=== PATIENT | female | born 1960 | race Caucasian/White ===

== ENCOUNTER 2016-05-30 14:57 | Inpatient (IN) | payer MEDICARE, MEDICAID ==
[~2016-05-30] VITALS: Ht 167.6 cm; Wt 91.5 kg
--- NOTE | ~2016-05-30 | ER ---
PATIENT'S NAME: ARTUR [facility] AGE: 56 Y [address] ROOM: [place] [address] LOCATION: GPCU ADMIT DATE: 05/30/2016 ER/Outpatient Report DISCHARGE DATE: FAMILY PHYSICIAN: Libra Sam MD ATTENDING PHYSICIAN: DONOVAN SARABIA CHIEF COMPLAINT: Difficulty breathing. HISTORY OF PRESENT ILLNESS: The patient states that she has had trouble breathing for the last several weeks, however, it is continuing to worsen. She has seen multiple times for the same issue, in fact has a thermal intelligence analyst, Dr. Leslie. She is on multiple breathing treatments and steroids and feels like she is getting worse. She does wear oxygen at night. She denies any issues with chest pain. No headaches or vision changes associated with this. She just states that it is getting harder and harder to breathe. She also noted that there was some blood in her phlegm that she is coughing up, which is new and that was also concerning. She denies any other acute issues. She did finish some azithromycin within the last few days. She denies any fevers or chills associated with this and has no urinary symptoms. PAST MEDICAL HISTORY: Documented on the record and reviewed by me. SOCIAL HISTORY: Documented on the record and reviewed by me. MEDICATIONS: Documented on the record and reviewed by me. ALLERGIES: DOCUMENTED ON THE RECORD AND REVIEWED BY ME. REVIEW OF SYSTEMS: All systems were reviewed and negative except as noted in the HPI. PHYSICAL EXAMINATION: VITAL SIGNS: Blood pressure 189/98, pulse is 101, respiratory rate is 22 to 24, temperature is 98.8, and SpO2 is 92% on room air. GENERAL: Age-appropriate female, appearing tired, coughing with mild respiratory distress with no overt signs of pain. NEURO: The patient is awake and alert. GCS is 15. No focal deficits or asymmetry on exam. HEENT: Normocephalic and atraumatic. The eyes are tired in appearance, but PATIENT'S NAME: REVERESYLVIA [facility] AGE: 56 Y [address] ROOM: [place] [address] LOCATION: GPCU ADMIT DATE: 05/30/2016 ER/Outpatient Report DISCHARGE DATE: FAMILY PHYSICIAN: Libra Sam MD ATTENDING PHYSICIAN: DONOVAN SARABIA. Sclerae are mildly injected. The oropharynx is grossly clear. NECK: Supple. The trachea is midline. CHEST: Heart is tachycardic with no obvious murmurs. The lungs are tachypneic with markedly diminished air entry bilaterally. Occasional wheeze or crackle noted diffusely. BACK: Otherwise nontender to palpation throughout. No CVA tenderness. ABDOMEN: Soft and nontender, but obese. EXTREMITIES: Warm and well perfused with trace peripheral edema. SKIN: Warm and dry without diaphoresis, rashes, or erythema. LABORATORY DATA AND X-RAYS: Influenza A and B are negative. Procalcitonin is below threshold. WBC is 12.3, hemoglobin 14.4, and platelets of 212. INR is 1.0. Sodium 141, potassium 3.5, chloride is 108, CO2 is 26, BUN is 11, and creatinine is 1.0. GFR is 57. LFTs are notable for an AST of 43, but otherwise normal. CPK is 61 and CK-MB is 0.8. Troponin is below threshold. CRP is below threshold. Free T4 is 1.0, TSH is 3.38, ProBNP is 134. Blood gas; pH of 7.41, pCO2 is 48, pO2 is 62, bicarb is 30.4, CO2 content 32, base excess is 4.8, saturation 92% on room air. Lactate is 0.8. D-dimer 0.23. EKG reveals a sinus rhythm, ventricular rate of 80 with normal intervals and axis. No change compared to prior EKG dated 04/14/2015. Chest x-ray, normal per my read with no infiltrates. RSV is pending. IMPRESSION: 1. Chronic obstructive pulmonary disease exacerbation without hypercarbia. 2. Mild elevation of AST secondary to known hepatitis. EMERGENCY DEPARTMENT COURSE: The patient was evaluated as above. She was given DuoNeb and Xopenex. She had mild improvement in her pulmonary exam. She did not become hypoxic. She did have a little bit of shortness of breath when she got up to use the restroom, however, her O2 saturations never did drop. She continues to breathe approximately 20 to 25 times a minute. The breathing treatments did not have any improvement between the first and second Xopenex. She was given 125 mg of Solu-Medrol IV. I did speak with Dr. Leslie, thermal intelligence analyst, who has recommended admission and IV steroids. I spoke with Dr. Sarabia, hospitalist, to admit the patient. The patient will be admitted to the PCU unit for observation of the presumed COPD exacerbation with increased work of breathing. All questions were answered to the best of my ability and the patient was admitted without further issue. EDMUDNO BIANCHI MD PATIENT'S NAME: SYLVIA SIDDIQUI [facility] AGE: 56 Y [address] ROOM: [place] [address] [facility] ADMIT DATE: 05/30/2016 ER/Outpatient Report DISCHARGE DATE: FAMILY PHYSICIAN: Libra Sam MD ATTENDING PHYSICIAN: DONOVAN SARABIA/tanisha /[id number] d: 05/30/162111 t: 05/31/16 0623, OUTPATIENT REPORT
--- NOTE | ~2016-05-30 | DS ---
PATIENT'S NAME: ARTUR [facility] AGE: 56 Y [address] ROOM: [place] [address] LOCATION: GPCU ADMIT DATE: 06/02/2016 Discharge Summary DISCHARGE DATE: 06/03/2016 FAMILY PHYSICIAN: Libra Sam MD ATTENDING PHYSICIAN: Daysi Sarabia PRIMARY DIAGNOSES: 1. Acute on chronic hypoxic and hypercapnic respiratory failure with chronic obstructive pulmonary disease exacerbation. 2. Essential hypertension. 3. Generalized anxiety. 4. Rheumatoid arthritis. 5. Coronary artery disease. 6. Hypothyroidism. 7. Fibromyalgia. 8. Nocturnal hypoxia with chronic nocturnal oxygen dependence. 9. Tobacco dependence. OPERATIONS/PROCEDURES: None. HISTORY OF PRESENTING ILLNESS/REASON FOR ADMISSION: Please refer to the H and P dictated on 05/30/2016. HOSPITAL COURSE: The patient was admitted to hospital as noted above with presumptive diagnosis of acute or chronic hypoxic and hypercapnic respiratory failure with chronic obstructive pulmonary disease exacerbation. She was treated with broad-spectrum antibiotic therapy. She did receive a steroid burst and taper. She was initially treated with doxycycline p.o. She remained afebrile over the course of her hospital stay. Cultures were negative. Her clinical condition gradually improved and oxygen requirements also improved. She was weaned back to room air by hospital day #3. She was able to ambulate in the hallways independently, was tolerating regular diet. That point, it was thought she would be stable enough for discharge to home on an adjusted steroid regimen and plans for close clinical follow up with Pulmonology and outpatient followup with the primary care provider. DISCHARGE INSTRUCTIONS: DIET: Regular as tolerated. ACTIVITY: As tolerated. MEDICATIONS: PATIENT'S NAME: [place] [facility] AGE: 56 Y [address] ROOM: [place] [address] LOCATION: GPCU ADMIT DATE: 06/02/2016 Discharge Summary DISCHARGE DATE: 06/03/2016 FAMILY PHYSICIAN: Libra Sam MD ATTENDING PHYSICIAN: Daysi Sarabia 1. Aspirin 81 mg p.o. daily. 2. Tussionex 5 mL p.o. b.i.d. p.r.n. cough. 3. Clonazepam 1 mg p.o. q.h.s. 4. Doxycycline 100 mg p.o. b.i.d. through 06/06/2016. 5. Cymbalta 30 mg p.o. daily. 6. Plaquenil 200 mg p.o. q.h.s. 7. Levothyroxine 100 mcg p.o. daily. 8. Metoprolol 25 mg p.o. daily. 9. Omeprazole 20 mg p.o. daily. 10. Prednisone tapering course 40 mg p.o. daily through 06/05/2016, then 20 mg p.o. daily for three days, then 10 mg p.o. daily for three days, then stop. 11. Daliresp 500 mcg p.o. daily. 12. Crestor 5 mg p.o. daily. 13. Topamax 50 mg p.o. b.i.d. 14. Vitamin D3 5000 units p.o. daily. 15. Ellipta 62.5 mcg inhaled daily. 16. Virtussin p.r.n. 17. Ibuprofen 800 mg p.o. t.i.d. p.r.n. 18. Albuterol HFA 2 puffs p.o. q.4-6 hours p.r.n. 19. Advair HFA 230/21 one puff b.i.d. 20. Oxygen 1 L q.h.s. FOLLOWUP: She will follow up Dr. Libra Sam in 1 week. She will follow up Dr. Leslie in the Pulmonology Clinic in 2 weeks. CONDITION ON DISCHARGE: Fair. Total time spent on discharge process 45 minutes. MD EZEKIEL ANDERSON/tanisha /[id number] d: 06/04/16 1117 t: 06/08/16 1550, DISCHARGE SUMMARY
--- NOTE | ~2016-05-30 | CON ---
PATIENT'S NAME: SYLVIA SIDDIQUI [facility] AGE: 56 Y [address] ROOM: [place] [address] LOCATION: GPCU ADMIT DATE: 06/02/2016 Consultation DISCHARGE DATE: 06/03/2016 FAMILY PHYSICIAN: Libra Sam MD ATTENDING PHYSICIAN: Daysi Sarabia DATE OF CONSULTATION: 06/02/2016 REFERRING PHYSICIAN: Ruddy Leslie MD INDICATION/REASON FOR CONSULTATION: COPD exacerbation. HISTORY OF PRESENT ILLNESS: This is a 56-year-old female, known to Dr. Leslie from the clinic who called in to us on Thursday late afternoon with complaints of a cough, wheezing, and shortness of breath. She was sent to the ER for evaluation and was admitted on Thursday evening for COPD exacerbation. The patient reports that she has had a worsening cough, increased shortness of breath, and wheezing for the last 2 weeks. She was initially treated on an outpatient basis with azithromycin and prednisone. However, she continued to feel worse especially over the last few days. She was admitted and started on doxycycline as well as IV Solu-Medrol with DuoNeb and Advair. Today she reports that she had a bad night with coughing, but overall does not feel that she has had much improvement in her symptoms yet. She is using the cough syrup at night which seems to help slow down the coughing. She currently denies any sinus drainage or congestion. She denies any fevers or chills. She does have a sore throat but attributes this to all of the frequent coughing. She denies any hemoptysis or edema. She typically uses 2 L of her nasal cannula at night. PAST MEDICAL HISTORY: Includes: 1. COPD. 2. Chronic respiratory failure. 3. Tobacco use. 4. CAD. 5. Hypertension. 6. Hyperlipidemia. ALLERGIES: SEE MAR. MEDICATIONS: See MAR. FAMILY HISTORY: PATIENT'S NAME: SYLVIA SIDDIQUI [facility] AGE: 56 Y [address] ROOM: [place] [address] LOCATION: GPCU ADMIT DATE: 06/02/2016 Consultation DISCHARGE DATE: 06/03/2016 FAMILY PHYSICIAN: Libra Sam MD ATTENDING PHYSICIAN: Daysi Sarabia The patient reports heart disease in both of her parents, but is negative for lung disease. SOCIAL HISTORY: She lives at home and is a long time one pack per day smoker. She denies any alcohol use. REVIEW OF SYSTEMS: A 12-point review of systems was negative except for what was noted in the HPI. PHYSICAL EXAMINATION: GENERAL: This is a 56-year-old female who is well developed, well-nourished overweight and appears in no acute distress at the time of exam. She is alert and oriented x3. HEENT: Head; normocephalic and atraumatic. Eyes; clear. NECK: Supple. No adenopathy. No carotid bruits or JVD. LUNGS: Decreased breath sounds throughout but overall clear. HEART: Regular rate and rhythm without murmur, gallop, or rub. ABDOMEN: Soft, nontender, and nondistended. Bowel sounds positive x4. EXTREMITIES: No cyanosis, clubbing, or edema. LABORATORY DATA AND IMAGING STUDIES: Diagnostic data shows the ABG on admission was pH of 7.41, pCO2 of 48, pO2 of 62, bicarbonate of 30.4, and base excess of 4.8. Sodium 141, potassium 3.9, BUN 11, and creatinine 0.9. ProBNP 134. Chest x-ray was negative. WBC 12.3, hemoglobin 14.4, hematocrit 43.7, and platelets of 212,000. Procalcitonin was less than 0.05. RSV and flu swabs were negative. ASSESSMENT: 1. Chronic obstructive pulmonary disease exacerbation. Slowly improving. 2. Acute respiratory failure. Almost resolved. 3. Anxiety, stable. 4. Tobacco abuse. Patient willing to quit. 5. Nocturnal hypoxia. PLAN: We will discontinue IV Solu-Medrol and start p.o. prednisone taper, otherwise continue with doxycycline as well as bronchodilator inhaled corticosteroids. I strongly advised the patient to not start smoking again. Further recommendations will be made pending the course of her stay. Thank you for the consult and the opportunity to participate in patient's care. PATIENT'S NAME: SYLVIA SIDDIQUI [facility] AGE: 56 Y [address] ROOM: [place] [address] LOCATION: GPCU ADMIT DATE: 06/02/2016 Consultation DISCHARGE DATE: 06/03/2016 FAMILY PHYSICIAN: Lirba Sam MD ATTENDING PHYSICIAN: Daysi Sarabia CLAIR VIEIRA APRN FOR RUDDY LESLIE MD [facility]/modl /[id number] d: 06/09/162110 t: 06/16/1602, CONSULTATION REPORT
--- NOTE | ~2016-05-30 | HP ---
PATIENT'S NAME: ARTUR [facility] AGE: 56 Y [address] ROOM: [place] [address] LOCATION: GPCU ADMIT DATE: 05/30/2016 History & Physical DISCHARGE DATE: FAMILY PHYSICIAN: Libra Sam MD ATTENDING PHYSICIAN: DONOVAN ELLISON DATE OF SERVICE: CHIEF COMPLAINT: Shortness of breath, COPD exacerbation. HISTORY OF PRESENT ILLNESS: This is a 56-year-old female, active smoker, long history of COPD, coronary artery disease, who presents to the emergency room with a 2-week history of progressively worsening shortness of breath, worsening cough, and productive sputum. The patient had been seeing her primary care physician over the last 2 weeks for worsening symptoms, and she had been started and tried on prednisone taper as well as just finished a course of Z-Christiano. However, it did not improve. The patient today complains of shortness of breath at rest and persistent cough and some chest tightness. The patient is an active smoker and still continues to smoke about a pack a day. The patient otherwise denies any chest pain, dizziness, lightheadedness, abdominal pain, nausea, vomiting, diarrhea, or constipation. Does report subjective fevers and chills. The patient lives at home with grandchildren, and 2 of her grand kids suffered influenza in the past couple of weeks. She had been checked for the flu twice in the last 2 weeks, both times were negative. PAST MEDICAL HISTORY: 1. COPD. 2. Chronic respiratory failure, on 2 L of oxygen nightly. 3. Tobacco abuse. 4. Coronary artery disease. 5. Hypertension. 6. Hyperlipidemia. FAMILY HISTORY: The patient has a history of heart disease in both her parents. SOCIAL HISTORY: The patient lives at home with grand kids. A pack a day smoker, has been doing so far long time. Denies any alcohol or illicit drug use. REVIEW OF SYSTEMS: A 10-point review of systems was conducted and were all negative except as mentioned in the HPI. PATIENT'S NAME: ARTUR [facility] AGE: 56 Y [address] ROOM: [place] [address] LOCATION: GPCU ADMIT DATE: 05/30/2016 History & Physical DISCHARGE DATE: FAMILY PHYSICIAN: Libra Sam MD ATTENDING PHYSICIAN: DONOVAN ELLISON PHYSICAL EXAMINATION: VITAL SIGNS: Blood pressure 157/88, pulse 103, respiratory rate 23, saturating 90% on room air. GENERAL: The patient is awake, alert, and oriented x3, looks older than stated age. HEENT: Moist mucous membranes. No scleral icterus or conjunctival pallor noted. SKIN: No rash or lesions noted. CHEST: Diffusely diminished breath sounds with mild wheezing noted throughout. HEART: S1, S2. Regular rate and rhythm. Tachycardiac rate in the 100s. ABDOMEN: Soft, nontender, nondistended. Positive bowel sounds. EXTREMITIES: Without edema or swelling. NEURO: Grossly nonfocal. MUSCULOSKELETAL: No joint pain or muscle pain noted. LABORATORY DATA: Admission labs reviewed. Chest x-ray without significant infiltrates. ASSESSMENT AND PLAN: 1. Acute on chronic hypoxic respiratory failure. This is related to chronic obstructive pulmonary disease exacerbation from a possible bacterial bronchitis. The patient has had symptoms over 2 weeks, which elicits treatment for possible bacterial infection. The patient has allergies to fluoroquinolones and had been tried on azithromycin as an outpatient, which has failed. I will put her on doxycycline for a 7-day course orally and monitor clinically. 2. Chronic obstructive pulmonary disease exacerbation secondary to bronchitis, likely bacterial. Manage as above. 3. Hypertension. We will continue the patient's home medications. 4. Coronary artery disease. The patient is having angina symptoms currently. We will continue her aspirin and cardiac meds. 5. Hyperlipidemia. We will continue her statin therapy. 6. Tobacco dependency. I had a lengthy discussion with her about the need to quit smoking. The patient has had multiple attempts to help her quit smoking, and she recognizes the need to do this soon. 7. Deep venous prophylaxis. We will use subcutaneous Lovenox. MD CYNTHIA HALLMAN/tanisha PATIENT'S NAME: SYLVIA SIDDIQUI [facility] AGE: 56 Y [address] ROOM: [place] [address] [facility] ADMIT DATE: 05/30/2016 History & Physical DISCHARGE DATE: FAMILY PHYSICIAN: Libra Sam MD ATTENDING PHYSICIAN: DONOVAN ELLISON /[id number] D: [id number] T: [id number] HISTORY & PHYSICAL
[~2016-05-30 14:57] MED LIST: ADVAIR HFA 230/1 KIT INH; AMOXICILLIN500 M1 PO; ASPIR 8181 MG PO; AZITHROMYCIN250 MG PO; CRESTOR5 MG PO; CYMBALTA60 MG PO; DELTASONE10 MG; DELTASONE10 MG PO; DELTASONE20 MG PO; DELTASONE50 MG PO; IBUPROFEN800 MG PO; INCRUSE ELLI62.5 MCG INH; KLONOPIN1 MG PO; LEVOTHROID (S100 MCG PO; MUCUS ER600 M1 PO; NICODERM (HABIT14 MG TRANS; OXYGEN M-15 INH; PLAQUENIL200 M1 PO; PREDNISONE10 MG PO; PREDNISONE20 MG PO; PRILOSEC20 MG PO; PROAIR HFA8.5 GM INH; SPIRIVA18 MCG INH; THEODUR200 MG PO; TOPAMAX50 MG PO; TOPROL XL25 MG PO; VIRTUSSIN DAC473 ML PO; VITAMIN D35000 UNI1 PO; VITAMIN E400 UNI2 PO
[2016-05-30 15:28] LABS: BICARBONATE 30.4 mmol/L (18.0-23.0); LACTATE 0.8 mEq/L (0.50-1.60); PCO2 48 mmHg (35-45); PO2 62 mmHg (80-90)
[2016-05-30 15:29] LABS: HEMATOCRIT 43.7 % (33.0-46.0); HEMOGLOBIN 14.4 g/dL (10.0-15.0); MCH 31.4 pg (27.0-34.0); MCV 95.2 fl (83.0-98.0); PLATELET COUNT 212 K/uL (150-450); RBC 4.59 M/uL (3.50-5.50); RDW-CV 12.8 % (11.9-14.6); WBC 12.3 K/uL (4.0-11.0)
[2016-05-30 15:35] LABS: PROTIME 9.9 SECONDS (9.6-11.1); PTT 23 SECONDS (25-32)
[2016-05-30 15:48] LABS: ALBUMIN 3.8 gm/dL (3.5-5.0); ALK PHOS 93 IU/L (33-138); ALT 68 IU/L (12-78); ANION GAP 10.5 (10.0-19.0); AST 43 IU/L (10-40); BLOOD UREA NITROGEN 11 mg/dL (6-24); CALCIUM 8.3 mg/dL (8.5-10.5); CHLORIDE 108 mMol/L (96-110); CO2 26 mMol/L (22-32); CPK 61 IU/L (21-215); ESTIMATED GFR (MDRD EQUATION) 57; POTASSIUM 3.5 mMol/L (3.7-5.1); SODIUM 141 mMol/L (135-145); TOTAL BILIRUBIN 0.3 mg/dL (0.0-1.5); TOTAL PROTEIN 7.4 g/dL (6.0-8.4)
[2016-05-30 15:58] LABS: ABSOLUTE NEUTROPHIL CT (ANC) 6.5 K/uL (1.8-7.8); BANDED NEUTROPHIL # 0.1 K/uL (0.0-0.1); BANDED NEUTROPHILS % 1 %; LYMPHOCYTE % 41 %; MONOCYTE # 0.6 K/uL (0.0-1.0); SEGMENTED NEUTROPHIL # 6.4 K/uL (1.8-7.8); SEGMENTED NEUTROPHIL % 52 %
[2016-05-30] MEDS ORDERED: BUTRANS1 EAC1 TRANS (18:29)
[2016-05-30] MEDS ORDERED: DALIRESP500 MCG PO (18:29)
[2016-05-30] MEDS ORDERED: CYMBALTA30 MG PO (18:29)
[2016-05-30] MEDS ORDERED: VIRTUSSIN AC L118 ML PO (18:30)
[2016-05-30] MEDS ORDERED: ALBUTEROL2.5 MG/31 INH (18:31)
[2016-05-30] MEDS ORDERED: NITROSTAT0.4 MG SL (18:32)
[2016-05-30] MEDS ORDERED: MOTRIN800 MG PO (18:32)
[2016-05-30] MEDS ORDERED: DELTASONE10 MG PO (18:34)
[2016-05-30] MEDS ORDERED: CIMZIA200 MG/ML SUB-Q (18:37)
[2016-06-01 04:44] LABS: ANION GAP 12.9 (10.0-19.0); BLOOD UREA NITROGEN 11 mg/dL (6-24); CALCIUM 8.5 mg/dL (8.5-10.5); CHLORIDE 109 mMol/L (96-110); CO2 23 mMol/L (22-32); CREATININE 0.9 mg/dL (0.5-1.1); ESTIMATED GFR (MDRD EQUATION) > 60; POTASSIUM 3.9 mMol/L (3.7-5.1); SODIUM 141 mMol/L (135-145)
[2016-06-03 05:04] LABS: BASOPHIL % 0.3 %; EOSINOPHIL % 0.1 %; HEMATOCRIT 39.2 % (33.0-46.0); HEMOGLOBIN 12.6 g/dL (10.0-15.0); IMMATURE GRANULOCYTE # 0.2 K/uL (0.0-0.3); IMMATURE GRANULOCYTE % 1.6 %; LYMPHOCYTE % 26.6 %; MCH 31.3 pg (27.0-34.0); MCHC 32.1 gm/dL (32.0-36.5); MCV 97.3 fl (83.0-98.0); MONOCYTE # 0.8 K/uL (0.0-1.0); MONOCYTE % 7.4 %; MPV 11.4 fl (9.4-12.4); NEUTROPHIL # (ANC) 7.3 K/uL (1.8-7.8); NRBC % 0 /100WBC (0-0.00); PLATELET COUNT 184 K/uL (150-450); RBC 4.03 M/uL (3.50-5.50); RDW-CV 13.4 % (11.9-14.6); WBC 11.4 K/uL (4.0-11.0)
[2016-06-03 05:19] LABS: ALBUMIN 3.5 gm/dL (3.5-5.0); ANION GAP 14.8 (10.0-19.0); BLOOD UREA NITROGEN 15 mg/dL (6-24); CALCIUM 8.7 mg/dL (8.5-10.5); CHLORIDE 106 mMol/L (96-110); CO2 23 mMol/L (22-32); CREATININE 0.9 mg/dL (0.5-1.1); ESTIMATED GFR (MDRD EQUATION) > 60; PHOSPHORUS 4.4 mg/dL (2.5-4.9); POTASSIUM 3.8 mMol/L (3.7-5.1); SODIUM 140 mMol/L (135-145)
[2016-06-03] MEDS ORDERED: DOXYCYCLINE100 MG PO (13:23)
[2016-06-03] MEDS ORDERED: DELTASONE20 MG PO ×2 (13:28→13:29)
[2016-06-03] MEDS ORDERED: DELTASONE10 MG PO (13:30)
[2016-06-03] MEDS ORDERED: IPRAT-ALBUT 0.5-3 ML NS (13:39)
[2016-06-03] MEDS ORDERED: PERIDEX15 ML PO (13:47)
== END 2016-06-03 14:55 | disposition disaster alternative care site (69) | DRG 190 ==
LOC: GMED 14:57 → GPCU 16:51
PROVIDERS: Emergency Medicine; Family Medicine; Internal Medicine; ADMIT Internal Medicine
DX: J44.1 Chronic obstructive pulmonary disease with (acute) exacerbation (principal); J96.21 Acute and chronic respiratory failure with hypoxia; G47.34 Idiopathic sleep related nonobstructive alveolar hypoventilation; J96.22 Acute and chronic respiratory failure with hypercapnia; F17.210 Nicotine dependence, cigarettes, uncomplicated; I25.10 Atherosclerotic heart disease of native coronary artery without angina pectoris; I10 Essential (primary) hypertension; E78.5 Hyperlipidemia, unspecified; Z79.82 Long term (current) use of aspirin; K21.9 Gastro-esophageal reflux disease without esophagitis; M06.9 Rheumatoid arthritis, unspecified; F32.9 Major depressive disorder, single episode, unspecified; Z79.52 Long term (current) use of systemic steroids; F41.1 Generalized anxiety disorder; M79.7 Fibromyalgia
CPT/HCPCS: G0378; J1644; J2920; J2930; J7512; J7612

== ENCOUNTER → 2016-09-02 | Outpatient (CLI) | payer MEDICARE, MEDICAID ==
[~2016-09-02] MED LIST changes: +ALBUTEROL2.5 MG/31 INH; +BUTRANS1 EAC1 TRANS; +CIMZIA200 MG/ML SUB-Q; +CYMBALTA30 MG PO; +DALIRESP500 MCG PO; +DOXYCYCLINE100 MG PO; +IPRAT-ALBUT 0.5-3 ML NS; +MOTRIN800 MG PO; +NITROSTAT0.4 MG SL; +PERIDEX15 ML PO; +VIRTUSSIN AC L118 ML PO
--- NOTE | ~2016-09-02 | PUL ---
PATIENT'S NAME: SYLVIA SIDDIQUI [facility] AGE: 56 Y [address] ROOM: [place] [address] LOCATION: [facility] ADMIT DATE: 09/02/2016 Pulmonary DISCHARGE DATE: FAMILY PHYSICIAN: Libra Sam MD ATTENDING PHYSICIAN: RUDDY TAYLOR NAME OF PROCEDURE: Sleep Study PROCEDURE DATE: 09/02/16 TECH: ARNULFO Pozo TEST #: [facility]# [id number] TECHNICAL PARAMETERS: The patient was studied using International 10/20 measuring system. While the patient was studied, there was continuous monitoring of EEG (8 leads), EOG (2 leads), EKG (3 leads), submental EMG (3 leads), tibial (4 leads), respiratory inductive plethysmography (RIP) for thoracic and abdominal effort, oral and nasal airflow with a thermocouple and pressure transducer, and oximetry. The avionics repair technician also performed visual and auditory observations noting things like body position, patient's status, breath sounds, artifact, snoring level and patient comments. Continuous sound was monitored using a 2-way speaker system and video monitoring was performed using an infrared camera. Review of the entire study was performed epoch by epoch utilizing a single epoch and multiple epoch capability sleep system. MEDICAL HISTORY: Patient is a 56-year-old overweight woman with daytime sleepiness and snoring. SLEEP STAGE SUMMARY: The above the patient was studied for a total of 483 minutes of which she slept 339 minutes. She fell asleep in 16 minutes and slept for 70% of the night. Sleep architecture revealed a decline in slow wave and REM sleep. RESPIRATORY SUMMARY: Oxygen saturations ranged from 82%-90% and were below 88% for greater than 5 minutes. There were no apneas or hypopneas. One liter of oxygen was started for non apneic hypoxemia. EKG SUMMARY: No significant dysrhythmias were noted. LIMB MOVEMENT SUMMARY: Periodic limb movements were noted in the first half of the night, but not the second half. Overall limb movement index was elevated at 68 events per hour. Limb movement with arousal was normal at 4 events per hour. PATIENT'S NAME: SYLVIA SIDDIQUI [facility] AGE: 56 Y [address] ROOM: [place] [address] LOCATION: [facility] ADMIT DATE: 09/02/2016 Pulmonary DISCHARGE DATE: FAMILY PHYSICIAN: Libra Sam MD ATTENDING PHYSICIAN: RUDDY TAYLOR IMPRESSION: 1. Nocturnal hypoxemia without significant obstructive sleep apnea. 2. Possible periodic limb movement disorder correlation with symptoms is suggested. MD DORIS AL/ /[id number] dtt: 09/09/16 0827 , Amandeep Guidry. dtd: 09/05/16 1333
== END | disposition disaster alternative care site (69) ==
LOC: GSLP 20:14
DX: G47.10 Hypersomnia, unspecified (principal); G47.36 Sleep related hypoventilation in conditions classified elsewhere; J44.9 Chronic obstructive pulmonary disease, unspecified